=== PATIENT | female | born 1995 | race Caucasian/White ===

== ENCOUNTER 2017-02-22 17:55 | Inpatient (IN) | payer MEDICAID ==
[~2017-02-22] VITALS: Ht 160 cm; Wt 74.8 kg
[2017-02-22] MEDS ORDERED: LACTATED RINGERS 1000ML 1,000 ML IV PRN (19:11)
[2017-02-22] MEDS ORDERED: OXYTOCIN-LR 20 UNITS/1000 ML 1,000 ML IV SCH (19:15)
[2017-02-22 19:33] LABS: HEMATOCRIT 25.1 % (36-48); MEAN CORPUSCULAR HGB CONC 32.1 g/dL (32.0-36.0); MEAN CORPUSCULAR VOLUME 65.3 fL (79-99); PLATELET COUNT (AUTO) 204 K/uL (130-400); RED BLOOD CELL COUNT(AUTO) 3.84 MIL/uL (4.00-5.50); RED CELL DISTRIBUTION WIDTH 16.6 % (11.0-15.5)
[2017-02-22 19:34] LABS: APPEARANCE,URINE Turbid (CLEAR); BILIRUBIN,URINE Negative (NEGATIVE); GLUCOSE, URINE (UA) Negative (NEGATIVE); KETONES,URINE Negative (NEGATIVE); LEUKOCYTE ESTERASE ,URINE Large (NEGATIVE); NITRATE,URINE Negative (NEGATIVE); OCCULT BLOOD,URINE Large (NEGATIVE); PROTEIN,URINE POS 2+ (NEGATIVE)
[2017-02-22 19:52] LABS: COLOR,URINE Orange (YELLOW)
[2017-02-22 20:10] LABS: BACTERIA,URINE Many /HPF (None Seen); SQUAMOUS EPITHELIAL CELL,UR TNTC /LPF (0-2); WBC,URINE 51-100 /HPF (0-1)
[2017-02-22 20:11] LABS: RBC,URINE None Seen /HPF (0-1)
[2017-02-23] VITALS (10 sets, daily range): BP systolic 108–138; BP diastolic 50–86
[2017-02-23] MEDS ORDERED: LACTATED RINGERS 1000ML 1,000 ML IV ONE ×2 (02:36→07:38)
[2017-02-23] MEDS ORDERED: OXYTOCIN 10 USP UNITS/ML ONE ×2 (02:36→07:38)
[2017-02-23] MEDS ORDERED: OXYTOCIN 10 USP UNITS/ML 20 UNIT in LACTATED RINGERS 1000ML 1,000 ML IV SCH (03:00)
[2017-02-23] MEDS ORDERED: PROMETHAZINE HCL 25 MG/ML 1ML AMPULE IM ONE (07:39)
[2017-02-23] MEDS ORDERED: MEPERIDINE-PF 50 MG/ML SYG ONE (07:39)
[2017-02-23] MEDS ORDERED: MEPERIDINE-PF 50 MG/ML SYG IVP SCH (07:45)
[2017-02-23] MEDS ORDERED: MEPERIDINE-PF 50 MG/ML SYG IVP ONE (07:45)
[2017-02-23] MEDS ORDERED: PROMETHAZINE HCL 25 MG/ML 1ML AMPULE IM SCH (07:45)
[2017-02-23] MEDS ORDERED: ACETAMINOPHEN 325 MG TAB PO PRN (09:00)
[2017-02-23] MEDS ORDERED: BENZOCAINE/LANOLIN/ALOE VERA 60 ML AEROSOL TP PRN (09:00)
[2017-02-23] MEDS ORDERED: WITCH HAZEL 1 PAD TP PRN (09:00)
[2017-02-23] MEDS ORDERED: OXYTOCIN-LR 20 UNITS/1000 ML 1,000 ML IV SCH (09:00)
[2017-02-23] MEDS ORDERED: MEASLES/MUMPS/RUBELLA VACCINE, LIVE 0.5 ML/VIAL SQ PRN (09:00)
[2017-02-23] MEDS ORDERED: DIPH,PERTUSS(ACELL),TET VAC/PF 0.5 ML VIAL IM PRN (09:00)
[2017-02-23] MEDS: DOCUSATE SODIUM 100 MG CAP PO SCH ×2 (10:37→20:51)
[2017-02-23] MEDS: IBUPROFEN 600 MG TABLET PO PRN ×2 (10:38→17:44)
[2017-02-24] MEDS: IBUPROFEN 600 MG TABLET PO PRN ×2 (01:03→09:28)
[2017-02-24 03:03] VITALS: BP 114/56
[2017-02-24 05:34] LABS: HEMATOCRIT 25.3 % (36-48); MEAN CORPUSCULAR HEMOGLOBIN 20.7 pg (27.0-33.0); MEAN CORPUSCULAR HGB CONC 31.4 g/dL (32.0-36.0); MEAN CORPUSCULAR VOLUME 65.8 fL (79-99); PLATELET COUNT (AUTO) 203 K/uL (130-400); RED BLOOD CELL COUNT(AUTO) 3.85 MIL/uL (4.00-5.50); RED CELL DISTRIBUTION WIDTH 16.7 % (11.0-15.5); WHITE BLOOD COUNT (AUTO) 10.6 K/uL (4.8-10.8)
[2017-02-24 07:24] LABS: HEPATITIS Bs ANTIGEN SCREEN P Negative (Negative)
[2017-02-24 08:05] VITALS: BP 99/56
[2017-02-24] MEDS: DOCUSATE SODIUM 100 MG CAP PO SCH (09:27)
== END 2017-02-24 11:55 | disposition home or self-care (01) | DRG 560 ==
LOC: OBSVTOIN 17:55 → LDH 17:55 → WSH 02-23 09:00
PROVIDERS: ADMIT Obstetrics & Gynecology; ATTEND Obstetrics & Gynecology
PROC: 10E0XZZ Delivery of Products of Conception, External Approach (ICD-10-PCS; principal; 2017-02-22)
PROC: 10907ZC Drainage of Amniotic Fluid, Therapeutic from Products of Conception, Via Natural or Artificial Opening (ICD-10-PCS; 2017-02-22)
PROC: 3E0234Z Introduction of Serum, Toxoid and Vaccine into Muscle, Percutaneous Approach (ICD-10-PCS; 2017-02-22)
PROC: 3E0134Z Introduction of Serum, Toxoid and Vaccine into Subcutaneous Tissue, Percutaneous Approach (ICD-10-PCS; 2017-02-22)
DX: O80 Encounter for full-term uncomplicated delivery (principal); Z23 Encounter for immunization; Z37.0 Single live birth; Z3A.38 38 weeks gestation of pregnancy
CPT/HCPCS: 36415; 81001; 85027; 86592; 86850; 86900; 86901; 87340; A4351; A4606; J2175; J2550; J2590; J7120

== ENCOUNTER 2017-05-03 11:23 | Emergency (ER) | payer MEDICAID | END 2017-05-03 12:13 | disposition home or self-care (01) | LOC: EDH 11:23 | DX: J04.0 Acute laryngitis (principal); J45.909 Unspecified asthma, uncomplicated | CPT/HCPCS: 99281 ==

== ENCOUNTER 2018-08-05 05:03 | Emergency (ER) | payer MEDICAID ==
[2018-08-05] MEDS ORDERED: NEOMY SULF/BACITRA/POLYMYXIN B 1 EACH PACKET TP ONE (05:42)
[2018-08-05] MEDS ORDERED: AMOXICILLIN/POTASSIUM CLAV 500-125 TABLET PO ONE (06:11)
== END 2018-08-05 06:18 | disposition home or self-care (01) ==
LOC: EDH 05:03
DX: S70.371A Other superficial bite of right thigh, initial encounter (principal); J45.909 Unspecified asthma, uncomplicated; Z72.0 Tobacco use; Y04.1XXA Assault by human bite, initial encounter; Y93.89 Activity, other specified; Y92.89 Other specified places as the place of occurrence of the external cause; Y99.8 Other external cause status

== ENCOUNTER 2019-06-05 13:48 | Observation (INO) | payer MEDICAID ==
[2019-06-05 14:36] LABS: APPEARANCE,URINE Cloudy (CLEAR); BILIRUBIN,URINE Negative (NEGATIVE); COLOR,URINE Yellow (YELLOW); GLUCOSE, URINE (UA) Negative (NEGATIVE); KETONES,URINE Negative (NEGATIVE); LEUKOCYTE ESTERASE ,URINE Moderate (NEGATIVE); NITRATE,URINE Negative (NEGATIVE); OCCULT BLOOD,URINE Negative (NEGATIVE); PROTEIN,URINE Negative (NEGATIVE)
[2019-06-05 15:22] LABS: AMPHET/METH SCREEN,URINE NEGATIVE (NEGATIVE); BARBITURATE SCREEN, URINE NEGATIVE (NEGATIVE); BENZODIAZEPINES SCREEN,URINE NEGATIVE (NEGATIVE); CANNABINOID SCREEN,URINE NEGATIVE (NEGATIVE); COCAINE SCREEN,URINE NEGATIVE (NEGATIVE); OPIATE SCREEN,URINE NEGATIVE (NEGATIVE); PHENCYCLIDINE SCREEN,URINE NEGATIVE (NEGATIVE)
[2019-06-05 15:33] LABS: BACTERIA,URINE Moderate /HPF (None Seen)
[2019-06-05 15:35] LABS: RBC,URINE 0-1 /HPF (0-1); SQUAMOUS EPITHELIAL CELL,UR Moderate /HPF (0-2); TRANSITIONAL EPI CELLS,URINE Few /HPF (None Seen); YEAST,URINE BUDDING Rare /HPF (None Seen)
[2019-06-05 15:36] LABS: URIC ACID CRYSTALS,URINE Rare /LPF (None Seen)
[2019-06-05] MEDS ORDERED: CEFTRIAXONE SODIUM 1 GM ONE (16:38)
[2019-06-05] MEDS ORDERED: LIDOCAINE HCL-MPF 1% 2ML VIAL ONE (16:39)
[2019-06-05] MEDS ORDERED: CEFTRIAXONE SODIUM 1 GM IM ONE (18:00)
== END 2019-06-05 17:05 | disposition home or self-care (01) ==
LOC: LDH 13:48
PROVIDERS: ADMIT Obstetrics & Gynecology; ATTEND Obstetrics & Gynecology
DX: O26.892 Other specified pregnancy related conditions, second trimester (principal); R10.9 Unspecified abdominal pain; Z3A.27 27 weeks gestation of pregnancy
CPT/HCPCS: 80305; 81001; 87077; 87088; 87186; G0378 ×3; J0696; J3490; 96372

== ENCOUNTER 2019-06-18 04:38 | Observation (INO) | payer MEDICAID ==
[~2019-06-18] VITALS: Ht 154.9 cm; Wt 71.2 kg
[2019-06-18 04:53] VITALS: BP 104/69
[2019-06-18] MEDS ORDERED: LACTATED RINGERS 1000ML IV ONE (05:00)
[2019-06-18 05:07] LABS: APPEARANCE,URINE Clear (CLEAR); BILIRUBIN,URINE Negative (NEGATIVE); COLOR,URINE Yellow (YELLOW); GLUCOSE, URINE (UA) Negative (NEGATIVE); KETONES,URINE Negative (NEGATIVE); LEUKOCYTE ESTERASE ,URINE Moderate (NEGATIVE); NITRATE,URINE Negative (NEGATIVE); OCCULT BLOOD,URINE Negative (NEGATIVE); PH,URINE 6.5 (5.0-8.0); PROTEIN,URINE Negative (NEGATIVE)
[2019-06-18 05:16] LABS: AMPHET/METH SCREEN,URINE NEGATIVE (NEGATIVE); BARBITURATE SCREEN, URINE NEGATIVE (NEGATIVE); BENZODIAZEPINES SCREEN,URINE NEGATIVE (NEGATIVE); CANNABINOID SCREEN,URINE NEGATIVE (NEGATIVE); COCAINE SCREEN,URINE NEGATIVE (NEGATIVE); OPIATE SCREEN,URINE NEGATIVE (NEGATIVE); PHENCYCLIDINE SCREEN,URINE NEGATIVE (NEGATIVE)
[2019-06-18 05:24] LABS: BACTERIA,URINE Few /HPF (None Seen); RBC,URINE None Seen /HPF (0-1)
[2019-06-18 05:25] LABS: SQUAMOUS EPITHELIAL CELL,UR Few /HPF (0-2)
[2019-06-18] MEDS ORDERED: LACTATED RINGERS 1000ML 1,000 ML IV SCH (06:00)
[2019-06-18] MEDS ORDERED: CEFTRIAXONE SODIUM 1 GM IVP SCH (06:00)
== END 2019-06-18 07:35 | disposition home or self-care (01) ==
LOC: EDH 04:38 → LDH 04:39
PROVIDERS: ADMIT Obstetrics & Gynecology; ATTEND Obstetrics & Gynecology
DX: O60.03 Preterm labor without delivery, third trimester (principal); Z3A.29 29 weeks gestation of pregnancy
CPT/HCPCS: 80305; 81001; 87088; 96374; 99284; G0378 ×3; J0696; J7120 ×2; 96360; 96361

== ENCOUNTER 2019-08-07 12:48 | Inpatient (IN) | payer MEDICAID ==
[~2019-08-07] VITALS: Ht 154.9 cm; Wt 76.7 kg
[2019-08-07 13:26] LABS: APPEARANCE,URINE Cloudy (CLEAR); BILIRUBIN,URINE Negative (NEGATIVE); COLOR,URINE Yellow (YELLOW); GLUCOSE, URINE (UA) Negative (NEGATIVE); KETONES,URINE Negative (NEGATIVE); LEUKOCYTE ESTERASE ,URINE Trace (NEGATIVE); NITRATE,URINE Negative (NEGATIVE); OCCULT BLOOD,URINE Negative (NEGATIVE); PH,URINE 6.5 (5.0-8.0); PROTEIN,URINE Trace mg/dL (NEGATIVE)
[2019-08-07 13:33] VITALS: BP 128/75
[2019-08-07 14:02] LABS: BACTERIA,URINE Rare /HPF (None Seen); RBC,URINE 0-1 /HPF (0-1); WBC,URINE 0-1 /HPF (0-1)
[2019-08-07 14:23] LABS: HEMATOCRIT 27.5 % (36-48); MEAN CORPUSCULAR HEMOGLOBIN 19.9 pg (27.0-33.0); MEAN CORPUSCULAR HGB CONC 29.5 g/dL (32.0-36.0); MEAN CORPUSCULAR VOLUME 67.4 fL (79-99); NUCLEATED RED BLOOD CELLS 0.3 % (0.0-0.19); PLATELET COUNT (AUTO) 231 K/uL (130-400); RED BLOOD CELL COUNT(AUTO) 4.08 MIL/uL (4.00-5.50); RED CELL DISTRIBUTION WIDTH 15.9 % (11.0-15.5); WHITE BLOOD COUNT (AUTO) 9.3 K/uL (4.8-10.8)
[2019-08-07] MEDS ORDERED: LACTATED RINGERS 1000ML 1,000 ML IV PRN (14:24)
[2019-08-07] MEDS ORDERED: LACTATED RINGERS 500 ML 500 ML IV PRN (15:00)
[2019-08-07] MEDS ORDERED: EPHEDRINE SULFATE 50 MG/ML AMPULE IVP PRN (15:00)
[2019-08-07] MEDS ORDERED: NALOXONE HCL 0.4 MG/1 ML ML IV PRN (15:00)
[2019-08-07] MEDS ORDERED: BUTORPHANOL TARTRATE 2 MG/ML IVP PRN (15:00)
[2019-08-07] MEDS ORDERED: OXYTOCIN-LR 20 UNITS/1000 ML 1,000 ML IV SCH (15:15)
[2019-08-07] MEDS: OXYTOCIN-LR 20 UNITS/1000 ML 1,000 ML IV SCH ×2 (19:00→21:00)
[2019-08-07] MEDS ORDERED: ACETAMINOPHEN-CODEINE 300/30MG TAB PO PRN (19:15)
[2019-08-07] MEDS ORDERED: BENZOCAINE/LANOLIN/ALOE VERA 60 ML AEROSOL TP PRN (19:15)
[2019-08-07] MEDS ORDERED: MEASLES/MUMPS/RUBELLA VACCINE, LIVE 0.5 ML/VIAL SQ PRN (19:15)
[2019-08-07] MEDS ORDERED: ACETAMINOPHEN 325 MG TAB PO PRN (19:15)
[2019-08-07] MEDS ORDERED: WITCH HAZEL 1 PAD TP PRN (19:15)
[2019-08-07] MEDS ORDERED: LANOLIN 30GM OINTMENT TP PRN (19:15)
[2019-08-07] MEDS ORDERED: DIPH,PERTUSS(ACELL),TET VAC/PF 0.5 ML VIAL IM PRN (19:15)
[2019-08-07] MEDS: DOCUSATE SODIUM 100 MG CAP PO SCH (20:45)
[2019-08-07] MEDS: IBUPROFEN 600 MG TABLET PO PRN (20:45)
--- NOTE | 2019-08-07 21:40 | NUR ---
Patient received from Labor and Delivery; Patient came in via wheelchair with IV of LR with 20 units Pitocin regulated at 125 ml/hour. Plan of care discussed with patient, she verbalizes understanding.call light given .
[2019-08-07 22:10] VITALS: BP 120/55
[2019-08-07 23:38] VITALS: BP 106/51
[2019-08-08 03:43] VITALS: BP 112/51
[2019-08-08 08:41] VITALS: BP 111/78
[2019-08-08] MEDS: DOCUSATE SODIUM 100 MG CAP PO SCH (08:59)
[2019-08-08] MEDS: IBUPROFEN 600 MG TABLET PO PRN (09:00)
[2019-08-08 09:12] LABS: HEPATITIS Bs ANTIGEN SCREEN P Negative (Negative)
[2019-08-08 12:00] VITALS: BP 107/70
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
[2019-08-08 16:20] VITALS: BP 104/72
--- NOTE | 2019-08-08 17:45 | NUR ---
verbal and written discharge instructions given, informed of the follow up appointment, no prescription given. informed to call the doctor for future concerns. pt voiced understanding to all things discussed. Addendum: 08/08/19 at 1811 by CHRIS EPSTEIN RN Amended: Links added.
--- NOTE | 2019-08-08 17:45 | NUR ---
verbal and written discharge instructions given, informed of the follow up appointment, prescription given. informed to call the doctor for future concerns. pt voiced understanding to all things discussed.
--- NOTE | 2019-08-08 19:15 | NUR ---
pt is dismissed in stable condition, brought to private car via wheelchair by Nikki Pires RN Addendum: 08/08/19 at 1916 by CHRIS EPSTEIN RN Amended: Links added.
== END 2019-08-08 19:15 | disposition home or self-care (01) | DRG 560 ==
LOC: EDH 12:48 → LDH 13:11 → OBSVTOIN 13:11 → WSH 21:40
PROVIDERS: ADMIT Obstetrics & Gynecology; ATTEND Obstetrics & Gynecology
PROC: 10E0XZZ Delivery of Products of Conception, External Approach (ICD-10-PCS; principal; 2019-08-07)
DX: O60.14X0 Preterm labor third trimester with preterm delivery third trimester, not applicable or unspecified (principal); Z37.0 Single live birth; D64.9 Anemia, unspecified; O99.02 Anemia complicating childbirth; Z3A.36 36 weeks gestation of pregnancy; Z28.21 Immunization not carried out because of patient refusal
CPT/HCPCS: 36415; 81001; 85027; 86592; 86850; 86900; 86901; 86922; 87340; A4351; A4606; G0378; J2590; J7120

== ENCOUNTER 2020-03-28 14:58 | Emergency (ER) | payer MEDICAID ==
[2020-03-28] MEDS ORDERED: ONDANSETRON HCL 4 MG/2 ML VIAL ONE (15:30)
[2020-03-28] MEDS ORDERED: SODIUM CHLORIDE 0.9% 1000ML 1,000 ML IV ONE (15:30)
[2020-03-28 15:33] LABS: APPEARANCE,URINE Clear (CLEAR); BASOPHILS % (AUTO) 0.3 % (0.0-5.0); BILIRUBIN,URINE Negative (NEGATIVE); COLOR,URINE Yellow (YELLOW); EOSINOPHILS % (AUTO) 1.2 % (0.0-8.0); GLUCOSE, URINE (UA) Negative (NEGATIVE); HEMATOCRIT 30.1 % (36-48); KETONES,URINE Negative (NEGATIVE); LEUKOCYTE ESTERASE ,URINE Trace (NEGATIVE); LYMPHOCYTES % (AUTO) 18.9 % (21.0-51.0); MEAN CORPUSCULAR HEMOGLOBIN 20.7 pg (27.0-33.0); MEAN CORPUSCULAR HGB CONC 30.6 g/dL (32.0-36.0); MEAN CORPUSCULAR VOLUME 67.6 fL (79-99); NEUTROPHILS % (AUTO) 72.3 % (40.0-77.0); NITRATE,URINE Negative (NEGATIVE); OCCULT BLOOD,URINE Negative (NEGATIVE); PLATELET COUNT (AUTO) 272 K/uL (130-400); PROTEIN,URINE Negative (NEGATIVE); RED BLOOD CELL COUNT(AUTO) 4.45 MIL/uL (4.00-5.50); RED CELL DISTRIBUTION WIDTH 15.2 % (11.0-15.5); WHITE BLOOD COUNT (AUTO) 11.8 K/uL (4.8-10.8)
[2020-03-28 15:44] LABS: CREATININE 0.7 mg/dL (0.5-1.5); POTASSIUM 3.9 mmol/L (3.5-5.1)
[2020-03-28 15:45] LABS: BACTERIA,URINE Rare /HPF (None Seen); RBC,URINE 0-1 /HPF (0-1); SQUAMOUS EPITHELIAL CELL,UR Rare /HPF (0-2)
[2020-03-28 16:10] LABS: ALBUMIN 2.7 g/dL (3.5-5.0); BILIRUBIN,TOTAL 0.2 mg/dL (0.2-1.0); TOTAL PROTEIN, SERUM 8.8 g/dL (6.0-8.3)
== END 2020-03-28 16:48 | disposition home or self-care (01) ==
LOC: EDH 14:58
DX: O99.612 Diseases of the digestive system complicating pregnancy, second trimester (principal); O99.512 Diseases of the respiratory system complicating pregnancy, second trimester; K52.89 Other specified noninfective gastroenteritis and colitis; J45.909 Unspecified asthma, uncomplicated; Z3A.23 23 weeks gestation of pregnancy
CPT/HCPCS: 36415; 80053; 81001; 83690; 84702; 85025; 87040 ×2; 96361; 96374; 99283; J2405; J7030

== ENCOUNTER 2020-04-05 23:09 | Emergency (ER) | payer MEDICAID ==
[2020-04-05] MEDS ORDERED: ONDANSETRON 4MG INJ ONE (23:18)
[2020-04-05 23:36] LABS: BASOPHILS % (AUTO) 0.2 % (0.0-5.0); EOSINOPHILS % (AUTO) 2.2 % (0.0-8.0); HEMATOCRIT 30.9 % (36-48); MEAN CORPUSCULAR HEMOGLOBIN 20.3 pg (27.0-33.0); MEAN CORPUSCULAR HGB CONC 30.1 g/dL (32.0-36.0); MEAN CORPUSCULAR VOLUME 67.3 fL (79-99); MONOCYTES % (AUTO) 7.5 % (3.0-13.0); NEUTROPHILS % (AUTO) 57.8 % (40.0-77.0); PLATELET COUNT (AUTO) 251 K/uL (130-400); RED BLOOD CELL COUNT(AUTO) 4.59 MIL/uL (4.00-5.50); RED CELL DISTRIBUTION WIDTH 15.5 % (11.0-15.5); WHITE BLOOD COUNT (AUTO) 11.5 K/uL (4.8-10.8)
[2020-04-05 23:38] LABS: APPEARANCE,URINE Clear (CLEAR); BILIRUBIN,URINE Negative (NEGATIVE); COLOR,URINE Yellow (YELLOW); GLUCOSE, URINE (UA) Negative (NEGATIVE); KETONES,URINE Trace mg/dL (NEGATIVE); LEUKOCYTE ESTERASE ,URINE Small (NEGATIVE); NITRATE,URINE Positive (NEGATIVE); OCCULT BLOOD,URINE Negative (NEGATIVE); PH,URINE 6.5 (5.0-8.0); PROTEIN,URINE POS 1+ mg/dL (NEGATIVE)
[2020-04-05] MEDS ORDERED: METOCLOPRAMIDE 10 MG/2 ML VIAL ONE (23:45)
[2020-04-05 23:57] LABS: CREATININE 0.8 mg/dL (0.5-1.5); POTASSIUM 3.2 mmol/L (3.5-5.1)
[2020-04-06 00:01] LABS: ALBUMIN 2.7 g/dL (3.5-5.0); BILIRUBIN,TOTAL 0.2 mg/dL (0.2-1.0); TOTAL PROTEIN, SERUM 8.6 g/dL (6.0-8.3)
[2020-04-06 00:42] LABS: RBC,URINE 0-1 /HPF (0-1)
[2020-04-06 00:43] LABS: BACTERIA,URINE Few /HPF (None Seen)
[2020-04-06] MEDS ORDERED: CEFTRIAXONE 1G VIAL ONE (01:06)
== END 2020-04-06 01:46 | disposition home or self-care (01) ==
LOC: EDH 23:09
DX: O23.42 Unspecified infection of urinary tract in pregnancy, second trimester (principal); O99.282 Endocrine, nutritional and metabolic diseases complicating pregnancy, second trimester; E86.0 Dehydration; O99.512 Diseases of the respiratory system complicating pregnancy, second trimester; J45.909 Unspecified asthma, uncomplicated; F41.9 Anxiety disorder, unspecified; Z3A.24 24 weeks gestation of pregnancy
CPT/HCPCS: 36415; 80053; 81001; 83690; 85025; 87088; 96361; 96365; 96375; 99284; J0696; J2405; J2765

== ENCOUNTER 2020-04-19 22:55 | Observation (INO) | payer MEDICAID ==
[~2020-04-19] VITALS: Ht 154.9 cm; Wt 75.3 kg
[2020-04-19 23:29] LABS: APPEARANCE,URINE Clear (CLEAR); BILIRUBIN,URINE Negative (NEGATIVE); COLOR,URINE Yellow (YELLOW); GLUCOSE, URINE (UA) Negative (NEGATIVE); KETONES,URINE Negative (NEGATIVE); LEUKOCYTE ESTERASE ,URINE Negative (NEGATIVE); NITRATE,URINE Negative (NEGATIVE); OCCULT BLOOD,URINE Negative (NEGATIVE); PH,URINE 6.5 (5.0-8.0); PROTEIN,URINE Negative (NEGATIVE)
[2020-04-19 23:38] LABS: AMPHET/METH SCREEN,URINE NEGATIVE (NEGATIVE); BARBITURATE SCREEN, URINE NEGATIVE (NEGATIVE); BENZODIAZEPINES SCREEN,URINE NEGATIVE (NEGATIVE); CANNABINOID SCREEN,URINE NEGATIVE (NEGATIVE); COCAINE SCREEN,URINE NEGATIVE (NEGATIVE); OPIATE SCREEN,URINE NEGATIVE (NEGATIVE); PHENCYCLIDINE SCREEN,URINE NEGATIVE (NEGATIVE)
== END 2020-04-20 00:25 | disposition home or self-care (01) ==
LOC: EDH 22:55 → LDH 22:56
PROVIDERS: ADMIT Obstetrics & Gynecology; ATTEND Obstetrics & Gynecology
DX: O62.9 Abnormality of forces of labor, unspecified (principal); O99.332 Smoking (tobacco) complicating pregnancy, second trimester; F17.200 Nicotine dependence, unspecified, uncomplicated; Z3A.26 26 weeks gestation of pregnancy
CPT/HCPCS: 59025; 80305; 81003; 99284; G0378

== ENCOUNTER 2020-05-29 13:40 | Observation (INO) | payer MEDICAID ==
[~2020-05-29] VITALS: Ht 154.9 cm; Wt 79.8 kg
[2020-05-29 14:28] VITALS: BP 104/58
[2020-05-29 14:38] LABS: APPEARANCE,URINE Clear (CLEAR); BILIRUBIN,URINE Negative (NEGATIVE); COLOR,URINE Yellow (YELLOW); GLUCOSE, URINE (UA) Negative (NEGATIVE); KETONES,URINE Trace mg/dL (NEGATIVE); LEUKOCYTE ESTERASE ,URINE Small (NEGATIVE); NITRATE,URINE Negative (NEGATIVE); OCCULT BLOOD,URINE Negative (NEGATIVE); PH,URINE 6.5 (5.0-8.0); PROTEIN,URINE Trace mg/dL (NEGATIVE)
[2020-05-29 14:47] LABS: BACTERIA,URINE Few /HPF (None Seen); RBC,URINE 0-1 /HPF (0-1); SQUAMOUS EPITHELIAL CELL,UR Few /HPF (0-2); WBC,URINE 0-1 /HPF (0-1)
== END 2020-05-29 15:05 | disposition home or self-care (01) ==
LOC: EDH 13:40 → LDH 13:41
PROVIDERS: ADMIT Obstetrics & Gynecology; ATTEND Obstetrics & Gynecology
DX: O26.893 Other specified pregnancy related conditions, third trimester (principal); O99.513 Diseases of the respiratory system complicating pregnancy, third trimester; J45.909 Unspecified asthma, uncomplicated; Z87.891 Personal history of nicotine dependence; Z3A.32 32 weeks gestation of pregnancy
CPT/HCPCS: 59025; 81001; 99284; G0378

== ENCOUNTER 2020-06-26 09:30 | Observation (INO) | payer MEDICAID ==
[~2020-06-26] VITALS: Ht 154.9 cm; Wt 81.6 kg
[2020-06-26 10:04] VITALS: BP 120/90
[2020-06-26 11:07] LABS: BASOPHILS % (AUTO) 0.3 % (0.0-5.0); HEMATOCRIT 24.4 % (36-48); LYMPHOCYTES % (AUTO) 24.7 % (21.0-51.0); MEAN CORPUSCULAR HEMOGLOBIN 17.2 pg (27.0-33.0); MEAN CORPUSCULAR HGB CONC 27.5 g/dL (32.0-36.0); MEAN CORPUSCULAR VOLUME 62.6 fL (79-99); NEUTROPHILS % (AUTO) 67.6 % (40.0-77.0); NUCLEATED RED BLOOD CELLS 0.7 % (0.0-0.19); PLATELET COUNT (AUTO) 230 K/uL (130-400); RED CELL DISTRIBUTION WIDTH 19.6 % (11.0-15.5); WHITE BLOOD COUNT (AUTO) 7.7 K/uL (4.8-10.8)
[2020-06-26 11:33] VITALS: BP 104/71
[2020-06-26 12:24] VITALS: BP 120/70
[2020-06-26 15:10] VITALS: BP 117/72
[2020-06-26 18:29] LABS: HEMATOCRIT 27.9 % (36-48)
== END 2020-06-26 18:40 | disposition home or self-care (01) ==
LOC: WSH 09:30
PROVIDERS: ADMIT Obstetrics & Gynecology; ATTEND Obstetrics & Gynecology
DX: O99.013 Anemia complicating pregnancy, third trimester (principal); D64.9 Anemia, unspecified; Z3A.35 35 weeks gestation of pregnancy
CPT/HCPCS: 36415; 36430; 85014; 85018; 85025; 86850; 86900; 86901; 86923; G0378 ×7; G0379; J7030; P9016 ×2

== ENCOUNTER 2020-07-08 17:43 | Observation (INO) | payer MEDICAID ==
[~2020-07-08] VITALS: Ht 154.9 cm; Wt 81.2 kg
[2020-07-08 18:23] VITALS: BP 116/69
[2020-07-08 18:36] LABS: APPEARANCE,URINE Clear (CLEAR); BILIRUBIN,URINE Negative (NEGATIVE); COLOR,URINE Yellow (YELLOW); GLUCOSE, URINE (UA) Negative (NEGATIVE); KETONES,URINE Trace mg/dL (NEGATIVE); LEUKOCYTE ESTERASE ,URINE Trace (NEGATIVE); NITRATE,URINE Negative (NEGATIVE); OCCULT BLOOD,URINE Negative (NEGATIVE); PH,URINE 7.5 (5.0-8.0); PROTEIN,URINE Trace mg/dL (NEGATIVE)
[2020-07-08 18:49] LABS: RBC,URINE 0-1 /HPF (0-1)
[2020-07-08 18:50] LABS: BACTERIA,URINE Few /HPF (None Seen); MUCUS,URINE Rare LPF (None Seen); SQUAMOUS EPITHELIAL CELL,UR Few /HPF (0-2)
[2020-07-08] MEDS ORDERED: LACTATED RINGERS 1000ML 1,000 ML IV SCH (19:00)
== END 2020-07-08 21:05 | disposition home or self-care (01) ==
LOC: EDH 17:43 → LDH 17:44
PROVIDERS: ADMIT Obstetrics & Gynecology; ATTEND Obstetrics & Gynecology
DX: O62.9 Abnormality of forces of labor, unspecified (principal); O99.513 Diseases of the respiratory system complicating pregnancy, third trimester; J45.909 Unspecified asthma, uncomplicated; Z3A.38 38 weeks gestation of pregnancy
CPT/HCPCS: 59025; 81001; 96360; 96361; 99284; G0378 ×3; J7120

== ENCOUNTER 2020-07-15 11:06 | Inpatient (IN) | payer MEDICAID ==
[~2020-07-15] VITALS: Ht 154.9 cm; Wt 80.7 kg
[2020-07-15] MEDS ORDERED: NALOXONE HCL 0.4 MG/1 ML ML IV PRN (11:30)
[2020-07-15] MEDS ORDERED: BUTORPHANOL TARTRATE 2 MG/ML IVP PRN (11:30)
[2020-07-15] MEDS ORDERED: LACTATED RINGERS 500 ML 500 ML IV PRN (11:30)
[2020-07-15] MEDS ORDERED: EPHEDRINE SULFATE 50 MG/ML AMPULE IVP PRN (11:30)
[2020-07-15] MEDS ORDERED: LACTATED RINGERS 1000ML 1,000 ML IV PRN (11:30)
[2020-07-15] MEDS ORDERED: LACTATED RINGERS 1000ML 1,000 ML IV ONE (11:36)
[2020-07-15 11:44] LABS: HEMATOCRIT 31.3 % (36-48); MEAN CORPUSCULAR HEMOGLOBIN 19.4 pg (27.0-33.0); MEAN CORPUSCULAR HGB CONC 29.1 g/dL (32.0-36.0); MEAN CORPUSCULAR VOLUME 66.6 fL (79-99); NUCLEATED RED BLOOD CELLS 0.6 % (0.0-0.19); PLATELET COUNT (AUTO) 257 K/uL (130-400); RED CELL DISTRIBUTION WIDTH 25.7 % (11.0-15.5); WHITE BLOOD COUNT (AUTO) 8.6 K/uL (4.8-10.8)
[2020-07-15 11:49] LABS: APPEARANCE,URINE Clear (CLEAR); BILIRUBIN,URINE Small (NEGATIVE); COLOR,URINE Dark Yellow (YELLOW); GLUCOSE, URINE (UA) Negative (NEGATIVE); KETONES,URINE Negative (NEGATIVE); LEUKOCYTE ESTERASE ,URINE Trace (NEGATIVE); NITRATE,URINE Negative (NEGATIVE); OCCULT BLOOD,URINE Negative (NEGATIVE); PROTEIN,URINE POS 1+ mg/dL (NEGATIVE)
[2020-07-15 12:02] LABS: BACTERIA,URINE Few /HPF (None Seen); RBC,URINE 0-1 /HPF (0-1); WBC,URINE 0-1 /HPF (0-1)
[2020-07-15] MEDS: OXYTOCIN-LR 20 UNITS/1000 ML 1,000 ML IV SCH ×2 (12:06→16:21)
[2020-07-15] MEDS ORDERED: ACETAMINOPHEN 325 MG TAB PO PRN (14:15)
[2020-07-15] MEDS ORDERED: DIPH,PERTUSS(ACELL),TET VAC/PF 0.5 ML VIAL IM PRN (14:15)
[2020-07-15] MEDS ORDERED: MEASLES/MUMPS/RUBELLA VACCINE, LIVE 0.5 ML/VIAL SQ PRN (14:15)
[2020-07-15] MEDS ORDERED: BENZOCAINE/LANOLIN/ALOE VERA 60 ML AEROSOL TP PRN (14:15)
[2020-07-15] MEDS ORDERED: ACETAMINOPHEN-CODEINE 300/30MG TAB PO PRN (14:15)
[2020-07-15] MEDS ORDERED: WITCH HAZEL 1 PAD TP PRN (14:15)
[2020-07-15] MEDS ORDERED: LANOLIN 30GM OINTMENT TP PRN (14:15)
[2020-07-15 15:56] VITALS: BP 122/72
[2020-07-15] MEDS: IBUPROFEN 600 MG TABLET PO PRN (16:23)
[2020-07-15] MEDS: DOCUSATE SODIUM 100 MG CAP PO SCH (20:55)
[2020-07-15 22:42] LABS: AMPHET/METH SCREEN,URINE NEGATIVE (NEGATIVE); BARBITURATE SCREEN, URINE NEGATIVE (NEGATIVE); BENZODIAZEPINES SCREEN,URINE NEGATIVE (NEGATIVE); CANNABINOID SCREEN,URINE NEGATIVE (NEGATIVE); COCAINE SCREEN,URINE NEGATIVE (NEGATIVE); OPIATE SCREEN,URINE NEGATIVE (NEGATIVE); PHENCYCLIDINE SCREEN,URINE NEGATIVE (NEGATIVE)
[2020-07-15 23:23] VITALS: BP 117/70
[2020-07-16 03:20] VITALS: BP 124/67
[2020-07-16 07:16] VITALS: BP 116/73
[2020-07-16 07:21] LABS: HEPATITIS Bs ANTIGEN SCREEN P Negative (Negative)
[2020-07-16] MEDS: IBUPROFEN 600 MG TABLET PO PRN (07:47)
[2020-07-16] MEDS: DOCUSATE SODIUM 100 MG CAP PO SCH (09:03)
[2020-07-16 11:09] VITALS: BP 109/72
== END 2020-07-16 16:00 | disposition home or self-care (01) | DRG 560 ==
LOC: LDH 11:06 → WSH 15:50 → PREOBSVTOIN 07-31 11:05
PROVIDERS: ADMIT Obstetrics & Gynecology; ATTEND Obstetrics & Gynecology
PROC: 10E0XZZ Delivery of Products of Conception, External Approach (ICD-10-PCS; principal; 2020-07-15)
PROC: 3E0234Z Introduction of Serum, Toxoid and Vaccine into Muscle, Percutaneous Approach (ICD-10-PCS; 2020-07-15)
PROC: 3E0134Z Introduction of Serum, Toxoid and Vaccine into Subcutaneous Tissue, Percutaneous Approach (ICD-10-PCS; 2020-07-15)
DX: O99.02 Anemia complicating childbirth (principal); Z37.0 Single live birth; O80 Encounter for full-term uncomplicated delivery; Z3A.38 38 weeks gestation of pregnancy
CPT/HCPCS: 36415; 80305; 81001; 85027; 86592; 86850; 86900; 86901; 87340; A4351; G0378; J2590; J7120

== ENCOUNTER 2021-10-21 01:41 | Emergency (ER) | payer MEDICAID ==
[~2021-10-21] VITALS: Ht 154.9 cm; Wt 72.1 kg
[2021-10-21 01:42] VITALS: BP 120/77
[2021-10-21] MEDS ORDERED: PHENAZOPYRIDINE HCL 200 MG TABLET ONE (02:16)
[2021-10-21] MEDS ORDERED: CEFTRIAXONE 1G VIAL ONE (02:16)
[2021-10-21] MEDS ORDERED: LIDOCAINE HCL 1% 20 ML VIAL ONE (02:18)
[2021-10-21] MEDS ORDERED: PHEN-847 PO (02:20)
[2021-10-21] MEDS ORDERED: PHENAZOPYRIDINE HCL 200 MG TABLET PO ONE (02:30)
[2021-10-21] MEDS ORDERED: CEFTRIAXONE 1G VIAL IM ONE (02:30)
== END 2021-10-21 02:31 | disposition home or self-care (01) ==
LOC: EDH 01:41
DX: N39.0 Urinary tract infection, site not specified (principal); J45.909 Unspecified asthma, uncomplicated
CPT/HCPCS: 99282; J0696